=== PATIENT | male | born 1955 | race Caucasian/White ===

== ENCOUNTER 2017-03-11 09:55 | Day surgery (SDC) | payer OTHER ==
[~2017-03-11] VITALS: Ht 180.3 cm; Wt 117.9 kg
[~2017-03-11 09:55] MED LIST: 0.9% Sodium Chloride 1,000 ML IV SCH; Sodium Chloride LOK Flush 10 mL Syringe IV PRN; fentaNYL-PF 50 mCg/mL 2 mL Inj IVPUSH PRN
[2017-03-11 10:20] VITALS: BP 128/81; PULSE 80; RESP 16; O2SAT 94
[2017-03-11] MEDS ORDERED: ATOR20TA PO (10:25)
[2017-03-11] MEDS ORDERED: ZYL100 PO (10:25)
[2017-03-11] MEDS ORDERED: LOSA100T29 PO (10:25)
[2017-03-11] MEDS ORDERED: POTA15TA9 PO (10:25)
[2017-03-11] MEDS ORDERED: AMLO10TA3 PO (10:25)
[2017-03-11] MEDS ORDERED: MULT1CAP33 PO (10:25)
[2017-03-11] MEDS ORDERED: ASPI-973 PO (10:29)
[2017-03-11] MEDS ORDERED: 0.9% Sodium Chloride 1,000 ML IV ONE (10:32)
[2017-03-11] MEDS ORDERED: fentaNYL-PF 50 mCg/mL 2 mL Inj ONE (10:35)
[2017-03-11 11:35] VITALS: BP 144/98; PULSE 73; RESP 16; O2SAT 95
[2017-03-11 11:45] VITALS: BP 133/82; PULSE 73; RESP 16; O2SAT 95
[2017-03-11 11:54] VITALS: BP 125/80; PULSE 80; RESP 16; O2SAT 96
--- NOTE | 2017-03-11 13:19 | ENDO ---
[address] [address] ENDOSCOPY PROCEDURE PATIENT: HANNAH MYERS : 1955 MR#: [id number] ADMIT: 03/11/2017 JOB ID: [id number] DATE: 03/11/2017 PROCEDURE: Colonoscopy. INDICATIONS: Screening. ASA CLASSIFICATION: II MALLAMPATI SCORE: 2 MEDICATIONS: Versed 6 mg, fentanyl 125 mcg. INSTRUMENT USED: PCF-H190DL. PREP QUALITY: Fair. PROCEDURE DETAILS: After informed consent was obtained, the patient was brought to the GI suite where he was placed on oxygen via nasal cannula and monitored with continuous pulse oximeter, telemetry, and blood pressure monitoring. A time-out was performed. Then, he was placed in a left lateral decubitus position and medications were administered for sedation. Digital rectal exam with palpation of the prostate was performed, however limited secondary to patient's body habitus. The colonoscope was then inserted into the rectum and advanced under direct visualization to the cecum, which was identified by the presence of the ileocecal valve and appendiceal orifice. Once the cecum was reached, the colonoscope was then inserted into the rectum and advanced under direct visualization to the cecum, which was identified by the presence of the ileocecal valve and appendiceal orifice. The procedure was moderately difficult, as the patient had a redundant colon requiring multiple position changes and the application of abdominal pressure. Once the cecum was reached, the colonoscope was withdrawn back into the rectum as the mucosa and lumen were examined. In the rectum, retroflexion was performed. Following retroflexion, remaining air in the rectum was suctioned, and procedure was completed. FINDINGS: 1. On the ileocecal valve, there was an approximately 5 mm sessile polyp that was removed with cold snare. 2. In the descending colon, there was a 4 mm sessile polyp that was removed with a cold snare. 3. There was evidence of a previously placed tattoo in the transverse colon. This site was carefully examined, as well as the area distal and proximal to this, and no evidence of any polyp remnant or any polyps were appreciated. 4. Scattered diverticula were seen throughout the left side of the colon. 5. Internal hemorrhoids were appreciated as the scope was withdrawn from the rectum. IMPRESSION: 1. Ileocecal valve polyp. 2. Descending colon polyp. 3. Left-sided diverticulosis. 4. Previously placed tattoo in the transverse colon. 5. Internal hemorrhoids. RECOMMENDATIONS: 1. Fiber-rich diet. 2. Repeat colonoscopy in five years. COMPLICATIONS: None. ESTIMATED BLOOD LOSS: Less than 5 mL.
--- NOTE | 2017-03-12 16:04 | PATH ---
SURGICAL PATHOLOGY Attending Physician:Lilia Husain CASE STATUS: Signed Out PATIENT NAME: HANNAH MYERS PID: [id number] : 1955 DATE COLLECTED:03/11/2017 19:38 SPECIMEN: 1: Colon, Biopsy 2: Colon, Biopsy CLINICAL HISTORY: 1). ILEOCECAL VALVE POLYP 2). DESCENDING COLON POLYP FINAL DIAGNOSIS: 1. Ileocecal Valve, Polyp, Biopsy: Portions of tubular adenoma x2; negative for high-grade dysplasia. 2. Descending Colon, Polyp, Biopsy: Tubular adenoma; negative for high-grade dysplasia. ICD10: K63.5 GROSS DESCRIPTION: The specimen is received in two formalin filled containers labeled with the patient's name. 1). The specimen is sublabeled "ileocecal valve polyp" and consists of 2 portions of tissue which aggregate to 0.3 x 0.3 x 0.2 CM. The specimen is entirely submitted in cassette 1A. 2). The specimen is sublabeled "descending colon polyp" and consists of a 0.3 x 0.3 x 0.2 CM portion of tissue which is entirely submitted in cassette 2A. 03/11/2017 [facility] ICD-9 CODES: CPT CODES: 1: 11825 2: 46853 Electronically Signed Out Celeste Conrad MD [facility], [place] [address] Technical component performed at [facility], [address] [place] [address] Ave[address], [place], [address]
== END 2017-03-11 23:59 | disposition home or self-care (01) ==
LOC: END 09:55
PROVIDERS: ATTEND Internal Medicine Gastroenterology
DX: Z12.11 Encounter for screening for malignant neoplasm of colon (principal); D12.0 Benign neoplasm of cecum; D12.4 Benign neoplasm of descending colon; K57.30 Diverticulosis of large intestine without perforation or abscess without bleeding; K64.8 Other hemorrhoids; Z83.71 Family history of colonic polyps; I10 Essential (primary) hypertension; E78.5 Hyperlipidemia, unspecified; G47.33 Obstructive sleep apnea (adult) (pediatric); E66.9 Obesity, unspecified; Z68.39 Body mass index [BMI] 39.0-39.9, adult; Z79.82 Long term (current) use of aspirin
CPT/HCPCS: 45385; 99153; G0500; J2250; J3010; J7030